=== PATIENT | male | born 1970 ===

== ENCOUNTER 2018-10-07 13:50 | Outpatient (CLI) | payer OTHER | END 2018-10-07 14:10 | disposition home or self-care (01) | LOC: OFIC 805 13:50 | DX: H61.21 Impacted cerumen, right ear (principal); H91.8X1 Other specified hearing loss, right ear ==

== ENCOUNTER 2018-10-17 09:39 | Outpatient (CLI) | payer OTHER ==
[~2018-10-17] VITALS: Ht 152.4 cm; Wt 93.0 kg
== END 2018-10-17 10:00 | disposition home or self-care (01) ==
LOC: OFIC 805 09:39
DX: H61.21 Impacted cerumen, right ear (principal); H91.8X1 Other specified hearing loss, right ear; H93.11 Tinnitus, right ear